=== PATIENT | female | born 1995 | race Caucasian/White ===

== ENCOUNTER 2021-11-26 05:45 | Inpatient (IN) | payer OTHER ==
[2021-11-26] MEDS ORDERED: CITRIC ACID/SODIUM CITRATE 30 ML UNIT-DOSE CUP PO ONE (06:00)
[2021-11-26] MEDS ORDERED: ELECTROLYTE-148 SOLN 500 ML IV SCH ×2 (06:00→06:30)
[2021-11-26 06:20] VITALS: BMI 29.2
[2021-11-26] MEDS ORDERED: ELECTROLYTE-148 SOLN 500 ML IV ONE (06:28)
[2021-11-26] MEDS ORDERED: IBUPROFEN 600 MG TABLET (FP) PO PRN (08:06)
[2021-11-26] MEDS ORDERED: ACETAMINOPHEN 325 MG TABLET (FP) PO PRN (08:06)
[2021-11-26] MEDS ORDERED: ONDANSETRON 4 MG/2 ML VIAL IVPUSH PRN (08:06)
[2021-11-26] MEDS ORDERED: morphine SULFATE/PF 1 MG/2 ML (2cc Syringe - QUVA) ONE (08:26)
[2021-11-26] MEDS ORDERED: ELECTROLYTE-148 SOLN 1,000 ML IV SCH ×2 (08:30)
[2021-11-26] MEDS ORDERED: ePHEDrine SULFATE 50 MG/1 ML AMPULE ONE (08:44)
[2021-11-26] MEDS ORDERED: ceFAZolin SODIUM 1 GM VIAL ONE ×2 (08:59→09:00)
[2021-11-26] MEDS ORDERED: OXYTOCIN 10 UNITS/ML VIAL ONE ×4 (09:00)
[2021-11-26] MEDS ORDERED: ONDANSETRON 4 MG/2 ML VIAL ONE ×2 (09:12→10:21)
[2021-11-26] MEDS ORDERED: METHYLERGONOVINE MALEATE 0.2 MG/1 ML AMP IM ONE (09:32)
[2021-11-26] MEDS ORDERED: OXYTOCIN 20 UNITS in 0.9% NS 20 UNIT/1,000 ML INFUS.BAG IV ONE (09:47)
[2021-11-26] MEDS: OXYTOCIN 20 UNITS in 0.9% NS 20 UNIT/1,000 ML INFUS.BAG IV SCH ×2 (09:50→16:53)
[2021-11-26] MEDS ORDERED: IBUPROFEN 800 MG/8 ML IJ IVPB ONE (10:45)
[2021-11-26] MEDS: IBUPROFEN 800 MG/8 ML IJ IVPB PRN ×2 (10:50→18:42)
[2021-11-26] MEDS: METHYLERGONOVINE MALEATE 0.2 MG TABLET (FP) PO SCH ×3 (14:55→21:56)
[2021-11-26] MEDS: oxyCODONE HCL 5 MG TABLET PO PRN (23:56)
[2021-11-26] MEDS: SIMETHICONE 80 MG TAB.CHEW (FP) PO PRN (23:56)
[2021-11-27] MEDS: METHYLERGONOVINE MALEATE 0.2 MG TABLET (FP) PO SCH ×2 (02:38→06:23)
[2021-11-27] MEDS: IBUPROFEN 800 MG/8 ML IJ IVPB PRN (02:38)
[2021-11-27] MEDS: oxyCODONE HCL 5 MG TABLET PO PRN ×3 (06:26→17:48)
[2021-11-27] MEDS: SIMETHICONE 80 MG TAB.CHEW (FP) PO PRN ×3 (06:28→20:30)
[2021-11-27 07:41] LABS: BASO % 0.5 % (0-2.0); EOS % 0.9 % (0-4.5); HEMATOCRIT 29.4 % (32.4-45.2); LYMPH % 16.9 % (8-40); MCH 31.5 pg (25.7-33.7); MCHC 34.1 g/dl (32.0-36.0); MEAN CELL VOLUME 92.2 fl (80-96); MEAN PLT VOLUME 9.7 fl (7.5-11.1); MONO % 7.1 % (3.8-10.2); NEUT % 74.6 % (42.8-82.8); PLATELET COUNT 85 10^3/uL (134-434); RBC 3.19 M/mm3 (3.60-5.2); RDW 17.6 % (11.6-15.6); WHITE BLOOD COUNT 9.2 K/mm3 (4.0-10.0)
[2021-11-27] MEDS ORDERED: BISACODYL 10 MG SUPP.RECT RC PRN (08:22)
[2021-11-27] MEDS: IBUPROFEN 600 MG TABLET (FP) PO PRN ×2 (12:58→20:30)
[2021-11-28] MEDS: oxyCODONE HCL 5 MG TABLET PO PRN ×5 (00:22→23:10)
[2021-11-28] MEDS: SIMETHICONE 80 MG TAB.CHEW (FP) PO PRN ×5 (00:22→19:48)
[2021-11-28] MEDS: IBUPROFEN 600 MG TABLET (FP) PO PRN (15:14)
[2021-11-28] MEDS: ACETAMINOPHEN 325 MG TABLET (FP) PO PRN (19:51)
[2021-11-29] MEDS: IBUPROFEN 600 MG TABLET (FP) PO PRN (03:53)
[2021-11-29] MEDS: ACETAMINOPHEN 325 MG TABLET (FP) PO PRN (05:40)
[2021-11-29 09:16] LABS: HEMATOCRIT 27.3 % (32.4-45.2); HEMOGLOBIN 9.2 GM/dL (10.7-15.3); MCH 31.4 pg (25.7-33.7); MCHC 33.8 g/dl (32.0-36.0); MEAN CELL VOLUME 92.8 fl (80-96); MEAN PLT VOLUME 9.3 fl (7.5-11.1); PLATELET COUNT 117 10^3/uL (134-434); RBC 2.94 M/mm3 (3.60-5.2); RDW 17.8 % (11.6-15.6)
[2021-11-29 10:56] VITALS: BP 106/61; PULSE 102; TEMP 98.8
[2021-11-29 13:11] LABS: ANISOCYTOSIS 2+; MACROCYTOSIS 0
== END 2021-11-29 10:45 | disposition home or self-care (01) | DRG 785 ==
LOC: JLDR 05:45 → J3W 13:15
PROVIDERS: ADMIT Student in an Organized Health Care Education/Training Program; ATTEND Student in an Organized Health Care Education/Training Program
PROC: 10D00Z1 Extraction of Products of Conception, Low, Open Approach (ICD-10-PCS; principal; 2021-11-26)
PROC: 0UT70ZZ Resection of Bilateral Fallopian Tubes, Open Approach (ICD-10-PCS; 2021-11-26)
PROC: 30233N1 Transfusion of Nonautologous Red Blood Cells into Peripheral Vein, Percutaneous Approach (ICD-10-PCS; 2021-11-26)
DX: O34.211 Maternal care for low transverse scar from previous cesarean delivery (principal); Z3A.39 39 weeks gestation of pregnancy; Z37.0 Single live birth
CPT/HCPCS: 36415; 36430; 85025; 86850; 86900; 86901; 86922; 88302-TC; 88307-TC; P9058

== ENCOUNTER 2022-04-22 12:50 | Emergency (ER) | payer OTHER ==
[2022-04-22 13:05] VITALS: BP 123/77; PULSE 77; RESP 19; TEMP 98.1; BMI 21.6
[2022-04-22] MEDS ORDERED: LACTATED RINGERS SOLUTION 1000 ML INFUS.BAG IV ONE (13:36)
[2022-04-22] MEDS ORDERED: METOCLOPRAMIDE HCL INJECTION 10 MG/2 ML VIAL IVPB ONE (13:36)
[2022-04-22] MEDS ORDERED: ACETAMINOPHEN 1000 MG/100 ML BAG IVPB ONE (13:36)
[2022-04-22] MEDS ORDERED: MECLIZINE HCL 25 MG TABLET (FP) PO ONE (13:44)
[2022-04-22] MEDS ORDERED: METOCLOPRAMIDE HCL INJECTION 10 MG/2 ML VIAL ONE (14:04)
[2022-04-22] MEDS ORDERED: MECLIZINE HCL 25 MG TABLET (FP) ONE (14:04)
[2022-04-22] MEDS ORDERED: ACETAMINOPHEN INJECTION 100 ML IVPB ONE (14:04)
[2022-04-22 14:44] LABS: BASO % 0.9 % (0-2.0); EOS % 0.5 % (0-4.5); HEMATOCRIT 40.9 % (32.4-45.2); LYMPH % 17.7 % (8-40); MCH 31.5 pg (25.7-33.7); MCHC 34.2 g/dl (32.0-36.0); MEAN CELL VOLUME 92.1 fl (80-96); MEAN PLT VOLUME 9.6 fl (7.5-11.1); MONO % 4.6 % (3.8-10.2); NEUT % 76.3 % (42.8-82.8); PLATELET COUNT 177 10^3/uL (134-434); RBC 4.44 M/mm3 (3.60-5.2); RDW 14.4 % (11.6-15.6); WHITE BLOOD COUNT 7.3 K/mm3 (4.0-10.0)
[2022-04-22 14:48] LABS: INR 1.03 (0.83-1.09); PROTHROMBIN TIME (PATIENT) 11.8 SEC (9.7-13.0)
[2022-04-22 14:51] LABS: ACTIVATED PTT 33.8 SECONDS (25.2-36.5); CHLORIDE 107 mmol/L (98-107); SODIUM 141 mmol/L (136-145)
[2022-04-22 14:53] LABS: CALCIUM 9.1 mg/dL (8.5-10.1)
[2022-04-22 14:54] LABS: ALBUMIN 4.1 g/dl (3.4-5.0); ANION GAP 8 MMOL/L (8-16); CO2 25 mmol/L (21-32)
[2022-04-22 14:56] LABS: GLUCOSE,RANDOM 73 mg/dL (74-106)
[2022-04-22 14:57] LABS: CREATININE 0.5 mg/dL (0.55-1.3); SGOT/AST 21 U/L (15-37); SGPT/ALT 23 U/L (13-61)
[2022-04-22 14:58] LABS: BILIRUBIN,TOTAL 0.4 mg/dL (0.2-1); TOT PROT 7.6 g/dl (6.4-8.2)
[2022-04-22 15:00] LABS: ALK PHOS 116 U/L (45-117)
[2022-04-22] MEDS ORDERED: KETOROLAC TROMETHAMINE 15 MG/ML VIAL IVPUSH ONE (15:20)
[2022-04-22] MEDS ORDERED: ONDANSETRON 4 MG/2 ML VIAL IVPUSH ONE (15:20)
[2022-04-22] MEDS ORDERED: KETOROLAC TROMETHAMINE 15 MG/ML VIAL ONE (15:52)
[2022-04-22] MEDS ORDERED: ONDANSETRON 4 MG/2 ML VIAL ONE (15:52)
== END 2022-04-22 18:08 | disposition home or self-care (01) ==
LOC: JER 12:50
DX: R55 Syncope and collapse (principal); R42 Dizziness and giddiness; R11.0 Nausea; G43.909 Migraine, unspecified, not intractable, without status migrainosus
CPT/HCPCS: 0241U-QW; 36415; 70450-TC; 71046-TC-FY; 80053; 82962; 84484; 84703; 85025; 85610; 85730; 86850; 86900; 86901; 93005; 93010; 99285-25

== ENCOUNTER 2022-07-01 22:03 | Emergency (ER) | payer OTHER ==
[2022-07-01 22:12] VITALS: BP 122/84; PULSE 100; RESP 18; TEMP 98; BMI 22.6
[2022-07-01] MEDS ORDERED: METOCLOPRAMIDE HCL INJECTION 10 MG/2 ML VIAL IVPUSH ONE (22:40)
[2022-07-01] MEDS ORDERED: ACETAMINOPHEN 1000 MG/100 ML BAG IVPB ONE (22:43)
[2022-07-01] MEDS ORDERED: METOCLOPRAMIDE HCL INJECTION 10 MG/2 ML VIAL ONE (22:50)
[2022-07-01] MEDS ORDERED: ACETAMINOPHEN INJECTION 100 ML IVPB ONE (22:50)
[2022-07-01] MEDS ORDERED: SODIUM CHLORIDE 0.9% 500 ML INFUS.BAG IV ONE (22:57)
[2022-07-01] MEDS ORDERED: LORazepam 2 MG TABLET PO ONE (23:08)
[2022-07-01] MEDS ORDERED: SODIUM CHLORIDE 1,000 ML IV STA (23:13)
[2022-07-01] MEDS ORDERED: LORazepam 1 MG TABLET ONE (23:26)
[2022-07-01 23:27] LABS: BASO % 2.5 % (0-2.0); EOS % 0.1 % (0-4.5); HEMATOCRIT 46.8 % (32.4-45.2); HEMOGLOBIN 15.7 GM/dL (10.7-15.3); LYMPH % 7.1 % (8-40); MCH 30.6 pg (25.7-33.7); MCHC 33.5 g/dl (32.0-36.0); MEAN CELL VOLUME 91.5 fl (80-96); MEAN PLT VOLUME 10.5 fl (7.5-11.1); MONO % 3.7 % (3.8-10.2); NEUT % 86.6 % (42.8-82.8); PLATELET COUNT 147 10^3/uL (134-434); RBC 5.12 M/mm3 (3.60-5.2); RDW 12.5 % (11.6-15.6); WHITE BLOOD COUNT 11.8 K/mm3 (4.0-10.0)
[2022-07-01 23:47] LABS: ALBUMIN 4.4 g/dl (3.4-5.0); BLOOD UREA NITROGEN 14.7 mg/dL (7-18); CALCIUM 9.6 mg/dL (8.5-10.1)
[2022-07-01 23:50] LABS: CREATININE 0.6 mg/dL (0.55-1.3)
[2022-07-01 23:51] LABS: BILIRUBIN,TOTAL 0.6 mg/dL (0.2-1)
[2022-07-02 01:18] LABS: URINE APPEARANCE CLEAR; URINE BILIRUBIN NEGATIVE (NEGATIVE); URINE COLOR YELLOW; URINE GLUCOSE (UA) NEGATIVE (NEGATIVE); URINE KETONE >=160 (NEGATIVE); URINE PROTEIN TRACE (NEGATIVE); URINE UROBILINOGEN 0.2 mg/dL (0.2-1.0)
[2022-07-02 01:19] LABS: URINE LEUK ESTERASE NEGATIVE (NEGATIVE); URINE NITRITE NEGATIVE (NEGATIVE)
== END 2022-07-02 02:15 | disposition home or self-care (01) ==
LOC: JER 22:03
PROC: 3E0333Z Introduction of Anti-inflammatory into Peripheral Vein, Percutaneous Approach (ICD-10-PCS; principal; 2022-07-01)
PROC: 3E033GC Introduction of Other Therapeutic Substance into Peripheral Vein, Percutaneous Approach (ICD-10-PCS; 2022-07-01)
PROC: 3E0337Z Introduction of Electrolytic and Water Balance Substance into Peripheral Vein, Percutaneous Approach (ICD-10-PCS; 2022-07-01)
DX: R43.0 Anosmia (principal); R11.10 Vomiting, unspecified; R51.9 Headache, unspecified
CPT/HCPCS: 0241U-QW; 36415; 80053; 81003; 83690; 84703; 85025; 87086; 93005; 93010; 99284-25

== ENCOUNTER 2023-01-13 21:57 | Emergency (ER) | payer OTHER ==
[2023-01-13 22:02] VITALS: BP 97/61; PULSE 74; RESP 18; TEMP 98.4; BMI 21.8
[2023-01-14] MEDS ORDERED: hydrOXYzine HCL 10 MG/5 ML LIQUID BULK BOTTLE PO ONE (00:23)
[2023-01-14 00:27] LABS: BASO % 0.6 % (0-2.0); EOS % 1.1 % (0-4.5); HEMATOCRIT 43.5 % (32.4-45.2); HEMOGLOBIN 14.3 GM/dL (10.7-15.3); LYMPH % 47.8 % (8-40); MCH 30.9 pg (25.7-33.7); MEAN CELL VOLUME 93.6 fl (80-96); MEAN PLT VOLUME 10.8 fl (7.5-11.1); MONO % 6.2 % (3.8-10.2); NEUT % 44.3 % (42.8-82.8); PLATELET COUNT 171 10^3/uL (134-434); RBC 4.64 M/mm3 (3.60-5.2); RDW 12.8 % (11.6-15.6)
[2023-01-14 00:47] LABS: CALCIUM 9.4 mg/dL (8.5-10.1)
[2023-01-14 00:48] LABS: ALBUMIN 3.9 g/dl (3.4-5.0); BLOOD UREA NITROGEN 12.9 mg/dL (7-18)
[2023-01-14 00:49] LABS: POTASSIUM 4.5 mmol/L (3.5-5.1)
[2023-01-14 00:51] LABS: CREATININE 0.5 mg/dL (0.55-1.3)
[2023-01-14 00:52] LABS: BILIRUBIN,TOTAL 0.2 mg/dL (0.2-1); TOT PROT 7.1 g/dl (6.4-8.2)
[2023-01-14] MEDS ORDERED: SODIUM CHLORIDE 0.9% 500 ML INFUS.BAG IV ONE ×2 (05:47→05:48)
[2023-01-14] MEDS ORDERED: DALBAVANCIN HCL 1,500 MG in DEXTROSE 5%-WATER - 500 ML IVPB ONE (05:52)
[2023-01-14 08:31] LABS: URINE COLOR YELLOW
[2023-01-14 08:32] LABS: URINE APPEARANCE CLEAR; URINE BILIRUBIN NEGATIVE (NEGATIVE); URINE GLUCOSE (UA) NEGATIVE (NEGATIVE); URINE KETONE NEGATIVE (NEGATIVE); URINE LEUK ESTERASE NEGATIVE (NEGATIVE); URINE NITRITE NEGATIVE (NEGATIVE); URINE PROTEIN NEGATIVE (NEGATIVE); URINE UROBILINOGEN 0.2 mg/dL (0.2-1.0)
== END 2023-01-14 07:33 | disposition home or self-care (01) ==
LOC: JER 21:57
DX: T88.8XXA Other specified complications of surgical and medical care, not elsewhere classified, initial encounter (principal); R19.7 Diarrhea, unspecified; R11.2 Nausea with vomiting, unspecified; R10.9 Unspecified abdominal pain; R10.32 Left lower quadrant pain; R07.0 Pain in throat; R14.0 Abdominal distension (gaseous); R19.00 Intra-abdominal and pelvic swelling, mass and lump, unspecified site
CPT/HCPCS: 0241U-QW; 36415; 74177-TC; 80053; 81003; 83605; 84703; 85025; 87040; 87070; 87186; 87205; 99285-25; J0875; Q9967

== ENCOUNTER 2023-01-29 22:14 | Emergency (ER) | payer OTHER ==
[2023-01-29 22:34] VITALS: BP 97/52; PULSE 74; RESP 19; TEMP 98.8; BMI 23.2
[2023-01-29] MEDS ORDERED: METOCLOPRAMIDE HCL INJECTION 10 MG/2 ML VIAL IVPUSH ONE (22:52)
[2023-01-29] MEDS ORDERED: ACETAMINOPHEN 1000 MG/100 ML BAG IVPB ONE (22:52)
[2023-01-29] MEDS ORDERED: SODIUM CHLORIDE 0.9% 500 ML INFUS.BAG IV ONE (22:52)
[2023-01-29] MEDS ORDERED: METOCLOPRAMIDE HCL INJECTION 10 MG/2 ML VIAL ONE (22:56)
[2023-01-29] MEDS ORDERED: ACETAMINOPHEN INJECTION 100 ML IVPB ONE (22:56)
[2023-01-29 23:11] LABS: BASO % 1.2 % (0-2.0); EOS % 0.6 % (0-4.5); HEMATOCRIT 42.4 % (32.4-45.2); HEMOGLOBIN 14.8 GM/dL (10.7-15.3); LYMPH % 28.6 % (8-40); MCH 31.8 pg (25.7-33.7); MCHC 34.9 g/dl (32.0-36.0); MEAN CELL VOLUME 91.1 fl (80-96); MEAN PLT VOLUME 10.4 fl (7.5-11.1); MONO % 5.5 % (3.8-10.2); NEUT % 64.1 % (42.8-82.8); PLATELET COUNT 176 10^3/uL (134-434); RBC 4.65 M/mm3 (3.60-5.2); RDW 13.2 % (11.6-15.6); WHITE BLOOD COUNT 9.3 K/mm3 (4.0-10.0)
[2023-01-29 23:20] LABS: POTASSIUM 4.3 mmol/L (3.5-5.1)
[2023-01-29 23:23] LABS: CALCIUM 9.5 mg/dL (8.5-10.1)
[2023-01-29 23:24] LABS: BLOOD UREA NITROGEN 14.3 mg/dL (7-18)
[2023-01-29 23:26] LABS: CREATININE 0.6 mg/dL (0.55-1.3)
[2023-01-29 23:28] LABS: BILIRUBIN,TOTAL 0.4 mg/dL (0.2-1); TOT PROT 7.2 g/dl (6.4-8.2)
== END 2023-01-30 00:37 | disposition home or self-care (01) ==
LOC: JER 22:14
PROC: 3E033NZ Introduction of Analgesics, Hypnotics, Sedatives into Peripheral Vein, Percutaneous Approach (ICD-10-PCS; principal; 2023-01-29)
PROC: 3E033GC Introduction of Other Therapeutic Substance into Peripheral Vein, Percutaneous Approach (ICD-10-PCS; 2023-01-29)
DX: R11.2 Nausea with vomiting, unspecified (principal); R51.9 Headache, unspecified; G43.909 Migraine, unspecified, not intractable, without status migrainosus
CPT/HCPCS: 36415; 70450-TC; 80053; 84703; 85025; 99284-25

== ENCOUNTER → 2023-05-21 | Emergency (ER) | payer SELFPAY ==
[~2023-05-21] MED LIST: BENZOCAINE/MENTH/CETYLPYRD CL 1 EACH LOZENGE MM ONE; DEXAMETHASONE LIQUID 0.5 MG/5 ML PO ONE; DEXAMETHASONE SOD PHOSPHATE 10 MG/1 ML VIAL ONE; KETOROLAC TROMETHAMINE 30 MG/1 ML VIAL IM ONE; KETOROLAC TROMETHAMINE 30 MG/1 ML VIAL ONE; RACEPINEPHRINE IH SOL 2.25% 11.25 MG/0.5 ML VIAL IH ONE; RACEPINEPHRINE IH SOL 2.25% 11.25 MG/0.5 ML VIAL NEB ONE; diphenhydrAMINE HCL 12.5 MG/5 ML UNIT-DOSE CUPS ONE; diphenhydrAMINE HCL 12.5 MG/5 ML UNIT-DOSE CUPS PO ONE
[2023-05-21 04:20] VITALS: BP 96/65; PULSE 81; RESP 19; TEMP 97.4; BMI 19.3
== END | disposition home or self-care (01) ==
LOC: JER 03:59
PROC: 3E0233Z Introduction of Anti-inflammatory into Muscle, Percutaneous Approach (ICD-10-PCS; principal; 2023-05-21)
PROC: 3E0F7GC Introduction of Other Therapeutic Substance into Respiratory Tract, Via Natural or Artificial Opening (ICD-10-PCS; 2023-05-21)
DX: J02.9 Acute pharyngitis, unspecified (principal); R07.0 Pain in throat; R51.9 Headache, unspecified; R50.9 Fever, unspecified; M79.10 Myalgia, unspecified site; B34.9 Viral infection, unspecified; R09.81 Nasal congestion; R05.9 Cough, unspecified; Z20.822 Contact with and (suspected) exposure to COVID-19
CPT/HCPCS: 0241U-QW; 70360-TC-FY; 87651; 99284-25

== ENCOUNTER 2023-08-15 15:44 | Emergency (ER) | payer BC ==
[2023-08-15 16:00] VITALS: BMI 19.9
[2023-08-15 17:59] LABS: URINE APPEARANCE CLEAR; URINE BILIRUBIN NEGATIVE (NEGATIVE); URINE COLOR YELLOW; URINE GLUCOSE (UA) NEGATIVE (NEGATIVE); URINE KETONE NEGATIVE (NEGATIVE); URINE LEUK ESTERASE NEGATIVE (NEGATIVE); URINE NITRITE NEGATIVE (NEGATIVE); URINE PROTEIN NEGATIVE (NEGATIVE); URINE UROBILINOGEN 0.2 mg/dL (0.2-1.0)
[2023-08-15 18:02] LABS: BASO % 0.8 % (0-2.0); EOS % 0.9 % (0-4.5); HEMATOCRIT 41.8 % (32.4-45.2); HEMOGLOBIN 14.5 GM/dL (10.7-15.3); LYMPH % 27.3 % (8-40); MCH 32.6 pg (25.7-33.7); MCHC 34.6 g/dl (32.0-36.0); MEAN CELL VOLUME 94.3 fl (80-96); MEAN PLT VOLUME 10.1 fl (7.5-11.1); MONO % 5.2 % (3.8-10.2); NEUT % 65.8 % (42.8-82.8); PLATELET COUNT 175 10^3/uL (134-434); RBC 4.44 M/mm3 (3.60-5.2); RDW 12.9 % (11.6-15.6); WHITE BLOOD COUNT 8.5 K/mm3 (4.0-10.0)
[2023-08-15 18:22] LABS: POTASSIUM 3.9 mmol/L (3.5-5.1)
[2023-08-15 18:24] LABS: CALCIUM 9.1 mg/dL (8.5-10.1)
[2023-08-15 18:25] LABS: ALBUMIN 3.9 g/dl (3.4-5.0); BLOOD UREA NITROGEN 7.2 mg/dL (7-18)
[2023-08-15 18:28] LABS: CREATININE 0.4 mg/dL (0.55-1.3)
[2023-08-15 18:30] LABS: BILIRUBIN,TOTAL 0.2 mg/dL (0.2-1); TOT PROT 7.4 g/dl (6.4-8.2)
[2023-08-15] MEDS ORDERED: ACETAMINOPHEN INJECTION 100 ML IVPB ONE (18:34)
[2023-08-15] MEDS: ACETAMINOPHEN 1000 MG/100 ML BAG IVPB ONE (18:48)
[2023-08-15] MEDS: LACTATED RINGERS SOLUTION 1000 ML INFUS.BAG IV ONE (19:22)
[2023-08-15 22:59] VITALS: BP 107/72; PULSE 90; RESP 16; TEMP 97.8
== END 2023-08-15 22:59 | disposition home or self-care (01) ==
LOC: JER 15:44
PROC: 3E03329 Introduction of Other Anti-infective into Peripheral Vein, Percutaneous Approach (ICD-10-PCS; principal; 2023-08-15)
PROC: 3E033NZ Introduction of Analgesics, Hypnotics, Sedatives into Peripheral Vein, Percutaneous Approach (ICD-10-PCS; 2023-08-15)
PROC: 3E033GC Introduction of Other Therapeutic Substance into Peripheral Vein, Percutaneous Approach (ICD-10-PCS; 2023-08-15)
DX: R10.30 Lower abdominal pain, unspecified (principal); R11.0 Nausea; M54.9 Dorsalgia, unspecified; Z20.822 Contact with and (suspected) exposure to COVID-19
CPT/HCPCS: 0241U-QW; 36415; 74177-TC; 76830-TC; 80053; 81003; 84703; 85025; 86850; 86900; 86901; 87086; 87110; 96374; 96375; 99285-25; J0131; Q9967

== ENCOUNTER 2023-08-17 21:40 | Emergency (ER) | payer BC ==
[2023-08-17 21:50] VITALS: BP 92/64; PULSE 106; RESP 20; TEMP 98.5; BMI 21.6
[2023-08-17 23:46] LABS: BASO % 0.5 % (0-2.0); EOS % 1.3 % (0-4.5); HEMATOCRIT 39.6 % (32.4-45.2); HEMOGLOBIN 13.7 GM/dL (10.7-15.3); LYMPH % 38.7 % (8-40); MCH 32.5 pg (25.7-33.7); MCHC 34.7 g/dl (32.0-36.0); MEAN CELL VOLUME 93.6 fl (80-96); MEAN PLT VOLUME 9.8 fl (7.5-11.1); MONO % 5.4 % (3.8-10.2); NEUT % 54.1 % (42.8-82.8); PLATELET COUNT 165 10^3/uL (134-434); RBC 4.23 M/mm3 (3.60-5.2); RDW 12.8 % (11.6-15.6)
[2023-08-18 00:08] LABS: CHLORIDE 106 mmol/L (98-107); SODIUM 141 mmol/L (136-145)
[2023-08-18 00:10] LABS: ALBUMIN 3.6 g/dl (3.4-5.0); ANION GAP 6 mmol/L (4-13); CALCIUM 9.1 mg/dL (8.5-10.1); CO2 28 mmol/L (21-32); GLUCOSE,RANDOM 102 mg/dL (74-106)
[2023-08-18 00:13] LABS: CREATININE 0.6 mg/dL (0.55-1.3); SGOT/AST 13 U/L (15-37); SGPT/ALT 17 U/L (13-61)
[2023-08-18 00:15] LABS: BILIRUBIN,TOTAL 0.2 mg/dL (0.2-1); TOT PROT 6.8 g/dl (6.4-8.2)
[2023-08-18 00:16] LABS: ALK PHOS 54 U/L (45-117)
[2023-08-18] MEDS ORDERED: KETOROLAC TROMETHAMINE 30 MG/1 ML VIAL ONE (00:21)
[2023-08-18] MEDS ORDERED: ACETAMINOPHEN 500 MG TABLET (FP) ONE (00:21)
[2023-08-18] MEDS: ACETAMINOPHEN 500 MG TABLET (FP) PO ONE (00:26)
[2023-08-18] MEDS: KETOROLAC TROMETHAMINE 30 MG/1 ML VIAL IM ONE (00:26)
[2023-08-18 00:49] LABS: URINE APPEARANCE CLEAR; URINE BILIRUBIN NEGATIVE (NEGATIVE); URINE COLOR YELLOW; URINE GLUCOSE (UA) NEGATIVE (NEGATIVE); URINE KETONE NEGATIVE (NEGATIVE); URINE LEUK ESTERASE NEGATIVE (NEGATIVE); URINE NITRITE NEGATIVE (NEGATIVE); URINE PROTEIN NEGATIVE (NEGATIVE); URINE UROBILINOGEN 0.2 mg/dL (0.2-1.0)
== END 2023-08-18 01:38 | disposition home or self-care (01) ==
LOC: JER 21:40
PROC: 3E0233Z Introduction of Anti-inflammatory into Muscle, Percutaneous Approach (ICD-10-PCS; principal; 2023-08-18)
DX: R10.31 Right lower quadrant pain (principal); R10.32 Left lower quadrant pain
CPT/HCPCS: 36415; 76830-TC; 80053; 81003; 84702; 85025; 87491; 87591; 99284-25

== ENCOUNTER 2023-11-12 00:54 | Emergency (ER) | payer BC ==
[2023-11-12 01:07] VITALS: RESP 20; TEMP 98.5; BMI 22.6
[2023-11-12] MEDS ORDERED: MAG HYDROX/AL HYDROX/SIMETH 30 ML UNIT-DOSE CUP ONE (01:54)
[2023-11-12] MEDS ORDERED: ONDANSETRON 4 MG/2 ML VIAL ONE (01:54)
[2023-11-12] MEDS ORDERED: FAMOTIDINE 10 MG/ML VIAL IVPB ONE (01:55)
[2023-11-12] MEDS: MAG HYDROX/AL HYDROX/SIMETH 30 ML UNIT-DOSE CUP PO ONE (02:37)
[2023-11-12] MEDS: FAMOTIDINE 20 MG/50 ML IVPB 20 MG/50 ML MG IVPB ONE (02:37)
[2023-11-12] MEDS: ONDANSETRON 4 MG/2 ML VIAL IVPUSH ONE (02:37)
[2023-11-12 02:58] VITALS: BP 92/52; PULSE 92
[2023-11-12] MEDS ORDERED: HALOPERIDOL LACTATE 5 MG/ML ONE (03:01)
[2023-11-12] MEDS: HALOPERIDOL LACTATE 5 MG/ML IM ONE (03:14)
[2023-11-12] MEDS: LACTATED RINGERS SOLUTION 1000 ML INFUS.BAG IV ONE ×2 (03:14→04:25)
[2023-11-12 03:35] LABS: BASO % 0.5 % (0-2.0); EOS % 0.1 % (0-4.5); HEMATOCRIT 40.7 % (32.4-45.2); HEMOGLOBIN 14.2 GM/dL (10.7-15.3); LYMPH % 9.5 % (8-40); MCH 32.3 pg (25.7-33.7); MCHC 34.8 g/dl (32.0-36.0); MEAN CELL VOLUME 92.9 fl (80-96); MEAN PLT VOLUME 10.8 fl (7.5-11.1); MONO % 2.9 % (3.8-10.2); PH,URINE 6.5 (5.0-8.0); PLATELET COUNT 152 10^3/uL (134-434); RBC 4.38 M/mm3 (3.60-5.2); RDW 13.3 % (11.6-15.6); URINE APPEARANCE CLEAR; URINE BILIRUBIN NEGATIVE (NEGATIVE); URINE COLOR YELLOW; URINE GLUCOSE (UA) NEGATIVE (NEGATIVE); URINE KETONE NEGATIVE (NEGATIVE); URINE LEUK ESTERASE NEGATIVE (NEGATIVE); URINE NITRITE NEGATIVE (NEGATIVE); URINE PROTEIN NEGATIVE (NEGATIVE); URINE UROBILINOGEN 0.2 mg/dL (0.2-1.0)
[2023-11-12 03:53] LABS: POTASSIUM 3.7 mmol/L (3.5-5.1)
[2023-11-12 03:55] LABS: CALCIUM 9.4 mg/dL (8.5-10.1)
[2023-11-12 03:56] LABS: ALBUMIN 4.2 g/dl (3.4-5.0); BLOOD UREA NITROGEN 8.5 mg/dL (7-18); MAGNESIUM 1.9 mg/dL (1.8-2.4)
[2023-11-12 03:59] LABS: CREATININE 0.5 mg/dL (0.55-1.3)
[2023-11-12 04:00] LABS: BILIRUBIN,TOTAL 0.3 mg/dL (0.2-1); TOT PROT 7.3 g/dl (6.4-8.2)
== END 2023-11-12 05:24 | disposition home or self-care (01) ==
LOC: JER 00:54
PROC: 3E033GC Introduction of Other Therapeutic Substance into Peripheral Vein, Percutaneous Approach (ICD-10-PCS; principal; 2023-11-12)
PROC: 3E030GC Introduction of Other Therapeutic Substance into Peripheral Vein, Open Approach (ICD-10-PCS; 2023-11-12)
PROC: 3E023GC Introduction of Other Therapeutic Substance into Muscle, Percutaneous Approach (ICD-10-PCS; 2023-11-12)
DX: R11.2 Nausea with vomiting, unspecified (principal); R19.7 Diarrhea, unspecified; R10.10 Upper abdominal pain, unspecified
CPT/HCPCS: 36415; 80053; 81003; 83690; 83735; 84703; 85025; 87086; 87186; 93005; 93010; 99284-25

== ENCOUNTER 2023-11-13 12:32 | Observation (INO) | payer BC ==
[2023-11-13] MEDS: EPINEPHrine 1:1,000 0.3 MG/0.3 ML SYR IM ONE (12:49)
[2023-11-13 12:50] VITALS: BMI 21.6
[2023-11-13] MEDS: LACTATED RINGERS SOLUTION 1000 ML INFUS.BAG IV ONE (13:47)
[2023-11-13] MEDS ORDERED: TRANEXAMIC ACID 1000 MG/10 ML VIAL ONE (13:47)
[2023-11-13] MEDS ORDERED: DEXAMETHASONE SOD PHOSPHATE 10 MG/1 ML VIAL ONE (13:47)
[2023-11-13] MEDS ORDERED: FAMOTIDINE 10 MG/ML VIAL IVPB ONE (13:48)
[2023-11-13] MEDS: TRANEXAMIC ACID 1000 MG/10 ML VIAL IVPUSH ONE (13:50)
[2023-11-13] MEDS: DEXAMETHASONE SOD PHOSPHATE 10 MG/1 ML VIAL IVPUSH ONE (13:50)
[2023-11-13] MEDS: FAMOTIDINE 20 MG/50 ML IVPB 20 MG/50 ML MG IVPB ONE (14:08)
[2023-11-13 14:13] LABS: BASO % 0.4 % (0-2.0); EOS % 0.3 % (0-4.5); HEMOGLOBIN 12.6 GM/dL (10.7-15.3); LYMPH % 18.2 % (8-40); MCH 31.4 pg (25.7-33.7); MCHC 33.1 g/dl (32.0-36.0); MEAN CELL VOLUME 94.9 fl (80-96); MEAN PLT VOLUME 10.3 fl (7.5-11.1); MONO % 3.3 % (3.8-10.2); NEUT % 77.8 % (42.8-82.8); PLATELET COUNT 144 10^3/uL (134-434); RDW 12.9 % (11.6-15.6); WHITE BLOOD COUNT 8.2 K/mm3 (4.0-10.0)
[2023-11-13 14:15] LABS: URINE APPEARANCE CLEAR; URINE BILIRUBIN NEGATIVE (NEGATIVE); URINE COLOR YELLOW; URINE GLUCOSE (UA) NEGATIVE (NEGATIVE); URINE KETONE NEGATIVE (NEGATIVE); URINE LEUK ESTERASE NEGATIVE (NEGATIVE); URINE NITRITE NEGATIVE (NEGATIVE); URINE PROTEIN NEGATIVE (NEGATIVE); URINE UROBILINOGEN 0.2 mg/dL (0.2-1.0)
[2023-11-13 14:18] LABS: VENOUS BASE EXCESS -1.3 mmol/L (-2-2); VENOUS O2 SATURATION 60.6 % (70-80); VENOUS PCO2 43.9 mmHg (38-52); VENOUS PH 7.36 (7.310-7.410)
[2023-11-13 14:20] LABS: INR 1.18 (0.83-1.09); PROTHROMBIN TIME (PATIENT) 13.3 SEC (9.7-13.0)
[2023-11-13] MEDS ORDERED: ONDANSETRON 4 MG/2 ML VIAL ONE (14:20)
[2023-11-13 14:23] LABS: ACTIVATED PTT 33.7 SECONDS (25.2-36.5)
[2023-11-13] MEDS: ONDANSETRON 4 MG/2 ML VIAL IVPUSH ONE (14:24)
[2023-11-13 14:28] LABS: CHLORIDE 105 mmol/L (98-107); SODIUM 138 mmol/L (136-145)
[2023-11-13 14:30] LABS: ALBUMIN 3.5 g/dl (3.4-5.0); ANION GAP 7 mmol/L (4-13); CALCIUM 8.5 mg/dL (8.5-10.1); CO2 25 mmol/L (21-32)
[2023-11-13 14:32] LABS: BLOOD UREA NITROGEN 10.2 mg/dL (7-18); GLUCOSE,RANDOM 121 mg/dL (74-106)
[2023-11-13 14:33] LABS: CREATININE 0.5 mg/dL (0.55-1.3); SGPT/ALT 21 U/L (13-61)
[2023-11-13 14:34] LABS: SGOT/AST 36 U/L (15-37)
[2023-11-13 14:35] LABS: CHOLESTEROL 176 mg/dL (50-200); TOT PROT 6.4 g/dl (6.4-8.2)
[2023-11-13 14:36] LABS: BILIRUBIN,TOTAL 0.6 mg/dL (0.2-1); LDL CHOLESTEROL (ONLY SJRH) 109 mg/dL (5-100)
[2023-11-13] MEDS: SODIUM CHLORIDE 0.9% 500 ML INFUS.BAG IV ONE (14:37)
[2023-11-13 14:38] LABS: ALK PHOS 49 U/L (45-117); HDL CHOLESTEROL 62 mg/dL (40-60)
[2023-11-13 14:39] LABS: LACTIC ACID 3.5 mmol/L (0.4-2.0)
[2023-11-13] MEDS ORDERED: MIDAZOLAM HCL 5 MG/1 ML Single Dose Vial ONE ×2 (15:20→18:08)
[2023-11-13] MEDS: MIDAZOLAM HCL 2 MG/2 ML SINGLE DOSE VIAL IVPUSH ONE ×2 (15:26→18:24)
[2023-11-13 18:49] LABS: COCAINE, UR NEGATIVE (NEGATIVE); OPIATES, URI NEGATIVE (NEGATIVE); URINE BARBITURATES NEGATIVE (NEGATIVE)
[2023-11-13 18:50] LABS: METHADONE, UR NEGATIVE (NEGATIVE); PHENCYCLIDINE,URINE NEGATIVE (NEGATIVE); URINE BENZODIAZEPINES NEGATIVE (NEGATIVE)
[2023-11-13] MEDS: ACETAMINOPHEN 1000 MG/100 ML BAG IVPB PRN (18:53)
[2023-11-13 18:56] LABS: URINE AMPHETAMINES NEGATIVE (NEGATIVE)
[2023-11-13] MEDS: MELATONIN 5 MG TABLETS PO PRN (21:29)
[2023-11-13] MEDS: LORazepam 2 MG/ML SDV VIAL IVPUSH ONE (22:44)
[2023-11-13] MEDS: MAGNESIUM 2GM/50ML STERILE WATER IVPB IVPB ONE (23:19)
[2023-11-14 08:17] LABS: POTASSIUM 4.2 mmol/L (3.5-5.1)
[2023-11-14 08:23] LABS: CALCIUM 8.4 mg/dL (8.5-10.1)
[2023-11-14 08:24] LABS: CREATININE 0.4 mg/dL (0.55-1.3); MAGNESIUM 2.5 mg/dL (1.8-2.4)
[2023-11-14 08:25] LABS: TOT PROT 6.5 g/dl (6.4-8.2)
[2023-11-14 08:26] LABS: ALBUMIN 3.6 g/dl (3.4-5.0); BLOOD UREA NITROGEN 8.2 mg/dL (7-18)
[2023-11-14 08:30] LABS: BILIRUBIN,TOTAL 0.6 mg/dL (0.2-1)
[2023-11-14] MEDS: methylPREDNISolone NA SUCC 40 MG/1 ML VIAL IVPUSH SCH (09:54)
[2023-11-14] MEDS: ENOXAPARIN NA (PORCINE) 40 MG/0.4 ML DISP.SYRIN SQ SCH (09:54)
[2023-11-14] MEDS ORDERED: FLUoxetine HCL 20 MG CAPSULE PO SCH (10:00)
[2023-11-14] MEDS ORDERED: PATIENT'S OWN MEDICATION (NON-FORMULARY) (Fluoxetine Hcl [Prozac] 40 MG Capsule) PO SCH (10:00)
[2023-11-14 10:41] LABS: BASO % 0.2 % (0-2.0); EOS % 0.1 % (0-4.5); HEMATOCRIT 39.1 % (32.4-45.2); HEMOGLOBIN 13.5 GM/dL (10.7-15.3); LYMPH % 19.3 % (8-40); MCH 32.4 pg (25.7-33.7); MCHC 34.5 g/dl (32.0-36.0); MEAN CELL VOLUME 93.8 fl (80-96); MONO % 5.7 % (3.8-10.2); NEUT % 74.7 % (42.8-82.8); PLATELET COUNT 147 10^3/uL (134-434); RBC 4.17 M/mm3 (3.60-5.2); RDW 13.2 % (11.6-15.6); WHITE BLOOD COUNT 10.5 K/mm3 (4.0-10.0)
[2023-11-14] MEDS: LACTATED RINGERS SOLUTION 1,000 ML/1,000 ML INFUS.BAG IV SCH (12:42)
[2023-11-14] MEDS: diphenhydrAMINE HCL 25 MG CAPSULE (FP) PO SCH (12:49)
[2023-11-15 07:24] LABS: BASO % 0.4 % (0-2.0); EOS % 0.4 % (0-4.5); HEMOGLOBIN 12.9 GM/dL (10.7-15.3); LYMPH % 33.4 % (8-40); MCH 32.6 pg (25.7-33.7); MCHC 34.9 g/dl (32.0-36.0); MEAN CELL VOLUME 93.4 fl (80-96); MEAN PLT VOLUME 10.6 fl (7.5-11.1); MONO % 5.7 % (3.8-10.2); NEUT % 60.1 % (42.8-82.8); PLATELET COUNT 144 10^3/uL (134-434); RBC 3.96 M/mm3 (3.60-5.2); RDW 13.4 % (11.6-15.6); WHITE BLOOD COUNT 7.6 K/mm3 (4.0-10.0)
[2023-11-15 07:46] LABS: POTASSIUM 3.9 mmol/L (3.5-5.1)
[2023-11-15 08:05] LABS: CALCIUM 8.7 mg/dL (8.5-10.1)
[2023-11-15 08:06] LABS: ALBUMIN 3.3 g/dl (3.4-5.0); MAGNESIUM 1.9 mg/dL (1.8-2.4)
[2023-11-15 08:08] LABS: CREATININE 0.4 mg/dL (0.55-1.3); PHOSPHOROUS 2.7 mg/dL (2.5-4.9)
[2023-11-15 08:10] LABS: BILIRUBIN,TOTAL 0.5 mg/dL (0.2-1); TOT PROT 5.9 g/dl (6.4-8.2)
[2023-11-15 08:35] VITALS: RESP 20
[2023-11-15] MEDS ORDERED: predniSONE 20 MG TABLET (UD) PO SCH (10:00)
[2023-11-15 15:14] VITALS: BP 100/62; PULSE 73; TEMP 99
== END 2023-11-15 17:11 | disposition home or self-care (01) ==
LOC: JER 12:32 → JERBED 17:20 → J4W 18:22
PROVIDERS: ADMIT Internal Medicine; ATTEND Internal Medicine
PROC: 3E033NZ Introduction of Analgesics, Hypnotics, Sedatives into Peripheral Vein, Percutaneous Approach (ICD-10-PCS; principal; 2023-11-13)
PROC: 3E0337Z Introduction of Electrolytic and Water Balance Substance into Peripheral Vein, Percutaneous Approach (ICD-10-PCS; 2023-11-13)
PROC: 3E033GC Introduction of Other Therapeutic Substance into Peripheral Vein, Percutaneous Approach (ICD-10-PCS; 2023-11-13)
PROC: 3E013GC Introduction of Other Therapeutic Substance into Subcutaneous Tissue, Percutaneous Approach (ICD-10-PCS; 2023-11-13)
DX: G51.9 Disorder of facial nerve, unspecified (principal); K14.0 Glossitis; R00.0 Tachycardia, unspecified; F41.9 Anxiety disorder, unspecified; F32.A Depression, unspecified; F41.0 Panic disorder [episodic paroxysmal anxiety]; G43.109 Migraine with aura, not intractable, without status migrainosus; G25.2 Other specified forms of tremor
CPT/HCPCS: 36415; 70450-TC; 70496-TC; 70498-TC; 70551-TC; 80053; 80061; 80307; 81003; 82550; 82553; 82803; 82962; 83036; 83605; 83735; 84100; 84439; 84443; 84484; 84703; 85025; 85610; 85730; 86850; 86900; 86901; 93005; 93010; 96372; 96374; 96375; 96376; 99285-25; G0378; J0131; J0171; J1100

== ENCOUNTER 2023-11-16 10:17 | Emergency (ER) | payer BC ==
[2023-11-16 11:44] VITALS: BMI 17.3
[2023-11-16] MEDS ORDERED: MECLIZINE HCL 25 MG TABLET (FP) ONE (12:13)
[2023-11-16] MEDS: SODIUM CHLORIDE 1,000 ML IV STA (12:18)
[2023-11-16] MEDS: MECLIZINE HCL 25 MG TABLET (FP) PO ONE (12:19)
[2023-11-16 12:20] LABS: POTASSIUM 4.7 mmol/L (3.5-5.1)
[2023-11-16 12:23] LABS: CALCIUM 9.2 mg/dL (8.5-10.1)
[2023-11-16 12:24] LABS: ALBUMIN 3.9 g/dl (3.4-5.0); BLOOD UREA NITROGEN 6.8 mg/dL (7-18)
[2023-11-16 12:27] LABS: CREATININE 0.4 mg/dL (0.55-1.3)
[2023-11-16 12:28] LABS: BILIRUBIN,TOTAL 0.7 mg/dL (0.2-1); TOT PROT 7.6 g/dl (6.4-8.2)
[2023-11-16 15:52] VITALS: BP 127/70; PULSE 103; RESP 20; TEMP 98.3
== END 2023-11-16 15:29 | disposition home or self-care (01) ==
LOC: JER 10:17
PROC: 3E0337Z Introduction of Electrolytic and Water Balance Substance into Peripheral Vein, Percutaneous Approach (ICD-10-PCS; principal; 2023-11-16)
DX: R42 Dizziness and giddiness (principal); F41.0 Panic disorder [episodic paroxysmal anxiety]
CPT/HCPCS: 36415; 80053; 93005; 93010; 99284-25

== ENCOUNTER 2023-11-17 15:55 | Emergency (ER) | payer BC ==
[2023-11-17 16:03] VITALS: BP 101/61; PULSE 75; RESP 18; TEMP 98.4; BMI 17.6
== END 2023-11-17 18:22 | disposition home or self-care (01) ==
LOC: JER 15:55
DX: R00.2 Palpitations (principal)
CPT/HCPCS: 93005; 93010; 99283-25

== ENCOUNTER 2024-05-10 22:06 | Emergency (ER) | payer BC ==
[2024-05-10 22:34] VITALS: BP 95/60; PULSE 68; RESP 18; TEMP 98.4; BMI 20.9
[2024-05-10] MEDS ORDERED: ACETAMINOPHEN 500 MG TABLET (FP) ONE (23:58)
[2024-05-11] MEDS: ACETAMINOPHEN 500 MG TABLET (FP) PO ONE (00:01)
[2024-05-11] MEDS ORDERED: KETOROLAC TROMETHAMINE 30 MG/1 ML VIAL ONE (00:49)
[2024-05-11] MEDS: KETOROLAC TROMETHAMINE 30 MG/1 ML VIAL IM ONE (00:58)
== END 2024-05-11 02:53 | disposition left against medical advice (07) ==
LOC: JER 22:06
PROC: 3E0133Z Introduction of Anti-inflammatory into Subcutaneous Tissue, Percutaneous Approach (ICD-10-PCS; principal; 2024-05-11)
DX: R10.32 Left lower quadrant pain (principal); G89.29 Other chronic pain
CPT/HCPCS: 76705-TC; 99284-25